=== PATIENT | male | born 1950 | race Caucasian/White ===

== ENCOUNTER 2020-08-20 05:33 | Observation (INO) ==
[2020-08-20] MEDS ORDERED: Lactated Ringers 1000 ml BAG 1,000 ML IV SCH (06:00)
[2020-08-20] MEDS ORDERED: Dexamethasone IV 4 MG/ML VIAL 1 ml VIAL IV SLOW PU ONE (06:00)
[2020-08-20] MEDS ORDERED: Buffered Lidocaine 1% SYRIN 1 ml INTRADERM ONE ×2 (06:00→06:23)
[2020-08-20] MEDS ORDERED: ceFAZolin 2 GM PREMIX 2 GM/50 ML BAG ONE (06:22)
[2020-08-20] MEDS ORDERED: Dexamethasone IV 4 MG/ML VIAL 1 ml VIAL ONE (06:22)
[2020-08-20] MEDS ORDERED: Vancomycin 1,000 MG VIAL ONE (07:06)
[2020-08-20] MEDS ORDERED: fentaNYL 100 mcg/2 ml 50 MCG/ML VIAL ONE (07:07)
[2020-08-20] MEDS ORDERED: Bupivacaine 0.5% SDV PF 30ML VIAL ONE (07:07)
[2020-08-20] MEDS ORDERED: Rocuronium 50 mg VIAL 10 mg/ml 5 ml VIAL (50 mg) ONE (07:08)
[2020-08-20] MEDS ORDERED: Lidocaine 2% PF 5 ML VIAL ONE (07:08)
[2020-08-20] MEDS ORDERED: Midazolam 2 mg/2 ml VIAL 1 mg/ml 2 ml VIAL (2 mg) ONE (07:08)
[2020-08-20] MEDS ORDERED: ROPIVACAINE 5 MG/ML 30 ML BTL (0.5%) ONE (07:08)
[2020-08-20] MEDS ORDERED: Lidocaine 1% w EPI 1:100,000 MDV 20 ML VIAL ONE (08:07)
[2020-08-20] MEDS ORDERED: Lidocaine 1% w EPI 1:200,000 SDV 30 ML VIAL ONE (08:08)
[2020-08-20] MEDS ORDERED: HYDROmorphone 1 MG/1 ML SYRINGE IV PRN (08:24)
[2020-08-20] MEDS ORDERED: fentaNYL 100 mcg/2 ml 50 MCG/ML VIAL IV PRN (08:24)
[2020-08-20] MEDS ORDERED: Ondansetron 4 mg VIAL 2 MG/ML 2 ml VIAL IV PRN ×2 (08:24→10:45)
[2020-08-20] MEDS ORDERED: Naloxone 0.4 mg VIAL 0.4 mg/ml 1 ml VIAL IV PRN (08:24)
[2020-08-20] MEDS ORDERED: Propofol 10 MG/ML 20 ML BTL ONE (09:42)
[2020-08-20] MEDS ORDERED: diPHENhydraMINE 25 mg TAB PO PRN (10:45)
[2020-08-20] MEDS ORDERED: diPHENhydraMINE IV 50 MG/ML 1 ml VIAL (BENADRYL) IV PRN (10:45)
[2020-08-20] MEDS ORDERED: Morphine 2 MG/ML SYRINGE IV PRN (10:45)
[2020-08-20] MEDS ORDERED: Magnesium Hydroxide LIQ 30 ML UDC PO PRN (10:45)
[2020-08-20] MEDS ORDERED: Lactulose 30 ml UDC PO PRN (10:45)
[2020-08-20] MEDS ORDERED: Ondansetron ODT 4 mg TAB 4 MG TAB PO PRN (10:45)
[2020-08-20] MEDS: D5W 1/2 NS 1000 ml BAG 1,000 ML IV SCH ×2 (12:25→21:37)
[2020-08-20] MEDS: Magnesium Hydroxide LIQ 30 ML UDC PO SCH (21:46)
[2020-08-21] MEDS: D5W 1/2 NS 1000 ml BAG 1,000 ML IV SCH (05:21)
[2020-08-21 06:34] LABS: Hematocrit 36 % (42-52); Hemoglobin 12.7 g/dL (14.0-18.0); Mean Platelet Volume 7.2 fL (7.4-10.4); Platelet Count 201 10^3/uL (150-450)
[2020-08-21 06:47] LABS: BUN/Creatinine Ratio 20.5 (8-20); Calcium 8.3 mg/dL (8.6-10.3); EGFR African American 119.8 (>60); Potassium 3.5 mmol/L (3.5-5.0)
[2020-08-21] MEDS: Magnesium Hydroxide LIQ 30 ML UDC PO SCH (08:11)
[2020-08-21] MEDS ORDERED: ceFAZolin 1 GM Q8H (ADVAN) IVPB SCH (09:00)
[2020-08-21] MEDS ORDERED: ceFAZolin 1 GM ADVAN 1 GM ADDV.VIAL IVPB SCH (09:00)
[2020-08-21] MEDS ORDERED: Aspirin EC 81 mg TAB.EC (enteric coated) PO SCH (09:00)
[2020-08-21] MEDS ORDERED: Potassium Chlor 20 meq TAB.ER PO SCH (09:00)
[2020-08-21] MEDS ORDERED: Vitamin THERAPEUTIC TAB PO SCH (09:00)
[2020-08-21 11:17] VITALS: BP 137/66
== END 2020-08-21 15:35 | disposition home or self-care (01) ==
LOC: OR 05:33 → SSU 05:33
PROVIDERS: ADMIT Orthopaedic Surgery; ATTEND Orthopaedic Surgery